=== PATIENT | male | born 1975 | race Caucasian/White ===

== ENCOUNTER → 2019-02-16 | Day surgery (SDC) | payer OTHER ==
[~2019-02-16] VITALS: Ht 176.5 cm; Wt 91.4 kg
[~2019-02-16] MED LIST: ALBUTEROL SULFATE 2.5 MG/0.5 ML NEB SOLUTION NEB ONE; BENZOCAINE 20% 50 MCG/SPRAY 57 GM TP ONE; BUPR-93 PO; FAMO20 PO; FentaNYL CITRATE-PF 100 MCG/2 ML VIAL ONE; GABA-531 PO; INSNOV SQ; INSU100V37 SQ; LIDOCAINE 2% 5 ML JELLY TP ONE; LIDOCAINE 4% 50 ML SOLUTION TP ONE; MIDAZOLAM HCL 2 MG/2 ML VIAL ONE; MethylPREDNISolone SOD SUCC 125 MG/2 ML VIAL IVP ONE; MethylPREDNISolone SOD SUCC 125 MG/2 ML VIAL ONE; NIFE30TA5 PO; OXYGEN THERAPY IH SCH; SERT100T12 PO; SIMV-261 PO; SODIUM CHLORIDE 0.9% 1,000 ML IV ONE
[2019-02-16 07:06] LABS: GLUCOMETER DEV NAME(LOC) SDS.; GLUCOSE,POINT OF CARE 313 MG/DL (70-110)
[2019-02-16 08:49] LABS: GLUCOMETER DEV NAME(LOC) PACU.; GLUCOSE,POINT OF CARE 271 MG/DL (70-110)
== END | disposition home or self-care (01) ==
LOC: SURGERY 06:08
PROVIDERS: ATTEND Internal Medicine Critical Care Medicine
DX: R05 Cough (principal); J34.89 Other specified disorders of nose and nasal sinuses; J98.8 Other specified respiratory disorders; J38.4 Edema of larynx; B37.0 Candidal stomatitis; Z88.0 Allergy status to penicillin; Z88.2 Allergy status to sulfonamides; Z91.040 Latex allergy status; E78.00 Pure hypercholesterolemia, unspecified; E11.9 Type 2 diabetes mellitus without complications; I10 Essential (primary) hypertension; M16.0 Bilateral primary osteoarthritis of hip; Z79.899 Other long term (current) drug therapy
CPT/HCPCS: 31623; 31624; 71045; 82962; 87070; 87101; 87205; 87206; 87220; 88108; 88312; 93005; J2250; J2930; J3010; J7030